=== PATIENT | female | born 1985 | race Caucasian/White ===

== ENCOUNTER 2018-01-03 08:06 | Outpatient (CLI) | payer OTHER ==
[~2018-01-03 08:06] MED LIST: ADVAIR 5001 DISK W/1; ANTI DEPRESSENT; BENADRYL25 MG PO; BUDEO.25; CLARITIN5 MG; FISH OIL300 MG; GILTUSS TR TAB1 EACH PO; MAGNESIUM27 MG; MEDROL4 MG PO; MULTIVITAMINAS; PROTONIX40 MG PO; PULMICORT1 MG/2 ML; TESSALON PERLE100 MG PO; VITAMIN C; XOPENEX0.63 MG/3; ZANTAC150 MG PO; ZINC10 M1
== END 2018-01-03 08:22 | disposition home or self-care (01) ==
LOC: MAMO-SONO 08:06
DX: E04.2 Nontoxic multinodular goiter (principal); N60.11 Diffuse cystic mastopathy of right breast; Z12.31 Encounter for screening mammogram for malignant neoplasm of breast

== ENCOUNTER → 2018-10-15 | Outpatient (CLI) | payer OTHER | END | disposition home or self-care (01) | LOC: SONOGRAMA 08:50 | DX: N92.6 Irregular menstruation, unspecified (principal) ==

== ENCOUNTER 2019-03-14 11:30 | Emergency (ER) | payer OTHER ==
[~2019-03-14] VITALS: Ht 162.6 cm; Wt 61.7 kg
[2019-03-14] MEDS ORDERED: SINGULAIR10 MG (12:00)
[2019-03-14] MEDS ORDERED: PROTONIX20 MG (12:01)
[2019-03-14] MEDS ORDERED: ZOFRAN4 MG (12:02)
== END 2019-03-14 15:58 | disposition home or self-care (01) ==
LOC: ER 11:30
DX: R51 Headache (principal)

== ENCOUNTER → 2020-11-04 | Outpatient (CLI) | payer OTHER ==
[~2020-11-04] MED LIST changes: +PROTONIX20 MG; +SINGULAIR10 MG; +ZOFRAN4 MG
== END | disposition home or self-care (01) ==
LOC: MAMO-SONO 06:54
PROVIDERS: ATTEND Family Medicine
DX: N60.11 Diffuse cystic mastopathy of right breast (principal); N60.12 Diffuse cystic mastopathy of left breast; Z12.31 Encounter for screening mammogram for malignant neoplasm of breast; N64.59 Other signs and symptoms in breast

== ENCOUNTER 2022-03-21 15:52 | Emergency (ER) | payer OTHER ==
[~2022-03-21] VITALS: Ht 162.6 cm; Wt 67.1 kg
[2022-03-21] MEDS ORDERED: REMERON15 M1 (16:32)
[2022-03-21] MEDS ORDERED: CLONAZEPAM0.5 M1 PO (16:33)
== END 2022-03-21 17:10 | disposition home or self-care (01) ==
LOC: ER 15:52
DX: S63.501A Unspecified sprain of right wrist, initial encounter (principal); X58.XXXA Exposure to other specified factors, initial encounter; Y93.9 Activity, unspecified; Y92.9 Unspecified place or not applicable; Y99.9 Unspecified external cause status; R20.0 Anesthesia of skin

== ENCOUNTER 2023-01-26 11:50 | Outpatient (CLI) | payer OTHER ==
[~2023-01-26 11:50] MED LIST changes: +CLONAZEPAM0.5 M1 PO; +REMERON15 M1
== END 2023-01-26 12:10 | disposition home or self-care (01) ==
LOC: SONOGRAMA 11:50
DX: M25.512 Pain in left shoulder (principal)

== ENCOUNTER → 2023-06-30 | Outpatient (CLI) | payer OTHER | END | disposition home or self-care (01) | LOC: MAMO-SONO 09:38 | PROVIDERS: ATTEND Obstetrics & Gynecology | DX: N60.11 Diffuse cystic mastopathy of right breast (principal); Z12.31 Encounter for screening mammogram for malignant neoplasm of breast ==

== ENCOUNTER 2023-07-11 10:46 | Outpatient (CLI) | payer OTHER | END 2023-07-11 14:32 | disposition home or self-care (01) | LOC: SONOGRAMA 10:46 | PROVIDERS: ATTEND Obstetrics & Gynecology | DX: Z09 Encounter for follow-up examination after completed treatment for conditions other than malignant neoplasm (principal); Z98.890 Other specified postprocedural states ==

== ENCOUNTER 2025-06-09 12:57 | Emergency (ER) | payer OTHER ==
[~2025-06-09] VITALS: Ht 162.6 cm; Wt 72.6 kg
[2025-06-09] MEDS ORDERED: METHYLPREDNISOLONE SOD SUCC 125 MG VIAL IV ONE (13:15)
[2025-06-09] MEDS ORDERED: IPRATROPIUM BROMIDE 0.5 MG/2.5 ML AMPUL.NEB IH SCH (13:15)
[2025-06-09] MEDS ORDERED: LEVALBUTEROL HCL 1.25 MG/3 ML SOLUTION IH SCH (13:15)
[2025-06-09] MEDS ORDERED: METHYLPREDNISOLONE SOD SUCC 125 MG VIAL ONE (13:32)
[2025-06-09] MEDS ORDERED: IPRATROPIUM BROMIDE 0.5 MG/2.5 ML AMPUL.NEB IH ONE (13:48)
[2025-06-09] MEDS ORDERED: LEVALBUTEROL HCL 0.63 MG/3 ML SOLUTION IH ONE (13:48)
[2025-06-09 13:55] LABS: BASO % 0.9 % (0.1-1.2); EOS # 0.20 (0.04-0.54); EOS % 2.3 % (0.7-7.0); LYMPH # 3.16 (1.18-3.74); LYMPH % 36.1 % (19.3-53.1); MEAN PLATELET VOLUME 9.80 fl (9.4-12.4); MONO # 0.59 (0.24-0.82); MONO % 6.7 % (4.7-12.5); NEUT # 4.69 (1.56-6.13); NEUT % 53.5 % (34.0-71.1); RED CELL DISTRIBUTION WIDTH 13.1 % (11.6-14.4)
[2025-06-09] MEDS ORDERED: MAGNESIUM SULFATE IN WATER 2 GM/50 ML PIGGYBAG IV ONE (14:00)
[2025-06-09 14:41] LABS: COVID-19 AG NEGATIVE (NEGATIVE)
== END 2025-06-09 20:16 | disposition home or self-care (01) ==
LOC: ER 12:58
PROVIDERS: General Practice
DX: J45.909 Unspecified asthma, uncomplicated (principal); Z20.822 Contact with and (suspected) exposure to COVID-19